=== PATIENT | female | born 1935 | race Caucasian/White ===

== ENCOUNTER 2023-06-06 20:30 | Emergency (ER) | payer OTHER ==
[~2023-06-06] VITALS: Ht 167.6 cm; Wt 46.3 kg
[2023-06-07] MEDS ORDERED: LORAZEPAM 0.5 MG TABLET ONE (00:58)
[2023-06-07] MEDS: LORAZEPAM 0.5 MG TABLET PO ONE (01:02)
[2023-06-07 02:39] VITALS: O2SAT 96
== END 2023-06-07 02:47 | disposition short-term general hospital (02) ==
LOC: ER 20:32
DX: S32.591A Other specified fracture of right pubis, initial encounter for closed fracture (principal); Z60.2 Problems related to living alone; W01.0XXA Fall on same level from slipping, tripping and stumbling without subsequent striking against object, initial encounter; Y93.89 Activity, other specified; Y92.89 Other specified places as the place of occurrence of the external cause; Y99.8 Other external cause status
CPT/HCPCS: 72170; 72192; A4606; A4663